=== PATIENT | male | born 1955 | race Caucasian/White ===

== ENCOUNTER → 2017-08-24 | Outpatient (CLI) | payer OTHER ==
[~2017-08-24] MED LIST: ZOLOFT25 MG
== END | disposition home or self-care (01) ==
LOC: NUCLEAR 10:03
DX: M81.0 Age-related osteoporosis without current pathological fracture (principal)

== ENCOUNTER 2017-09-12 07:44 | Outpatient (CLI) | payer OTHER | END 2017-09-12 08:00 | disposition home or self-care (01) | LOC: NUCLEAR 07:44 | DX: R07.89 Other chest pain (principal); M94.0 Chondrocostal junction syndrome [Tietze] | CPT/HCPCS: 78306; A9503 ==